=== PATIENT | male | born 1975 | race Caucasian/White ===

== ENCOUNTER 2017-12-25 12:13 | Emergency (ER) | payer BC ==
[~2017-12-25] VITALS: Ht 172.7 cm; Wt 72.6 kg
[~2017-12-25 12:13] MED LIST: PERCOCET 5-3251 EACH PO
[2017-12-25] MEDS ORDERED: OXYCODONE HCL10 MG PO (13:01)
== END 2017-12-25 13:02 | disposition left against medical advice (07) ==
LOC: ED 12:13
DX: M25.511 Pain in right shoulder (principal); Z79.899 Other long term (current) drug therapy
CPT/HCPCS: 99283

== ENCOUNTER 2024-12-29 20:38 | Emergency (ER) | payer BC ==
[~2024-12-29] VITALS: Ht 172.7 cm; Wt 81.6 kg
[~2024-12-29 20:38] MED LIST changes: +OXYCODONE HCL10 MG PO
[2024-12-29] MEDS ORDERED: DIPHTH,PERTUSS(ACELL),TET VAC 0.5 ML SYRINGE IM ONE (21:00)
[2024-12-29 23:02] VITALS: BP 138/96
== END 2024-12-29 23:04 | disposition home or self-care (01) ==
LOC: ED 20:38
DX: S81.012A Laceration without foreign body, left knee, initial encounter (principal); W29.3XXA Contact with powered garden and outdoor hand tools and machinery, initial encounter
CPT/HCPCS: 12002; 90471; 90715; 99282-25

== ENCOUNTER 2025-02-15 04:57 | Emergency (ER) | payer BC ==
[~2025-02-15] VITALS: Ht 172.7 cm; Wt 78.0 kg
[2025-02-15] MEDS ORDERED: IBLOOD GLUCOSE TEST STRIP 1 EA TEST XX ONE (05:15)
[2025-02-15 05:42] LABS: BASOPHILS 0.9 % (0.2-1.2); EOSINOPHILS 1.0 % (0.8-7.0); LYMPHOCYTES 22.8 % (21.8-53.1); MCH 29.0 PG (25.7-32.2); MCHC 33.8 g/dL (32.3-36.5); MCV 85.8 fL (79.0-92.2); MONOCYTES 6.7 % (5.3-12.2); NEUTROPHILS 68.5 % (34.0-67.9); RBC 5.21 M/uL (4.63-6.08)
[2025-02-15] MEDS ORDERED: ASPIRIN 81 MG CHEW PO ONE (05:45)
[2025-02-15 06:00] LABS: BLOOD/HGB, URINE NEGATIVE (Negative); KETONE, URINE NEGATIVE (Negative); LEUK ESTERASE, URINE NEGATIVE (negative); NITRITE, URINE NEGATIVE (negative)
[2025-02-15 06:05] LABS: AMPHETAMINES, URINE NEGATIVE (NEGATIVE); BARBITURATES, URINE NEGATIVE (NEGATIVE); BENZODIAZEPINE, URINE NEGATIVE (NEGATIVE); CANNABINOID, URINE NEGATIVE (NEGATIVE); COCAINE, URINE NEGATIVE (NEGATIVE); ECSTASY, URINE NEGATIVE (NEGATIVE); FENTANYL, URINE NEGATIVE (NEGATIVE); METHADONE, URINE NEGATIVE (NEGATIVE); OPIATES, URINE NEGATIVE (NEGATIVE); OXYCODONE, URINE NEGATIVE (NEGATIVE); PHENCYCLIDINE, URINE NEGATIVE (NEGATIVE)
[2025-02-15 06:16] LABS: ALT (SGPT) 22.0 U/L (14-59); AST (SGOT) 22.0 U/L (15-37); GLOMERULAR FILTRATION RATE,EST 89.0 mL/min (>60); PROTEIN, TOTAL 8.1 g/dL (6.4-8.2); UREA NITROGEN 12.0 mg/dL (7-18)
--- NOTE | 2025-02-15 14:03 | EKG ---
[facility] [address] [facility] [place], [place] [address] Signed Normal sinus rhythm Normal ECG When compared with ECG of 15-FEB-2025 05:07, (Unconfirmed) No significant change was found Confirmed by Vladimir Ramos DO ([id number]) on 02/15/2025 2:03:13 PM Electronically Signed By: VLADIMIR RAMOS DO 02/15/25 1403 PATIENT NAME: ANGELIQUEGER[place]IA Electrocardiogram DATE OF : 75 PHYSICIAN: VLADIMIR RAMOS DO REPORT #: [id number] REPORT IS CONFIDENTIAL AND NOT TO BE RELEASED WITHOUT AUTHORIZATION
--- NOTE | 2025-02-15 14:03 | EKG ---
[facility] [address] [facility] [place], [place] [address] Signed Normal sinus rhythm Minimal voltage criteria for LVH, may be normal variant ( Sokolow-Potter ) Borderline ECG No previous ECGs available Confirmed by Vladimir Holloway DO ([id number]) on 02/15/2025 2:03:01 PM Electronically Signed By: VLADIMIR HOLLOWAY DO 02/15/25 1403 PATIENT NAME: GERMANIA MERINO CYRUS Electrocardiogram DATE OF : 75 PHYSICIAN: VLADIMIR HOLLOWAY DO REPORT #: [id number] REPORT IS CONFIDENTIAL AND NOT TO BE RELEASED WITHOUT AUTHORIZATION
== END 2025-02-15 07:39 | disposition home or self-care (01) ==
LOC: ED 04:57
PROVIDERS: Internal Medicine
DX: R07.89 Other chest pain (principal)
CPT/HCPCS: 36415; 71045; 80053; 80307; 81003; 83735; 84443; 84484; 85025; 93005; 93010; 99285-25; A9270